=== PATIENT | female | born 1990 | race Caucasian/White ===

== ENCOUNTER → 2023-04-06 12:33 | Outpatient (CLI) | payer BC, SELFPAY ==
--- NOTE | ~2023-04-06 | XR_ITS ---
EXAMINATION: XR chest 2V DATE: 04/06/2023 13:09 INDICATION: Thoracic spine and rib pain TECHNIQUE: PA and lateral views of the chest are obtained. COMPARISON: 04/24/2011 FINDINGS: The lungs are free of acute opacities. No pleural effusion or pneumothorax. The cardiomedia stinal silhouette is normal. There is mild thoracic spondylosis. IMPRESSION: 1. No acute cardiopulmonary abnormality. Reviewed, dictated and finalized at location A.
== END ==
PROVIDERS: PCP Family Medicine; Visit Provider Chiropractor
DX: R05.9 Cough, unspecified (principal)
CPT/HCPCS: 71046